=== PATIENT | male | born 2000 | race Caucasian/White ===

== ENCOUNTER → 2022-11-25 | Outpatient (CLI) | payer MEDICAID | LOC: M WUC 11:52 | PROVIDERS: ATTEND Physician Assistant | DX: M25.551 Pain in right hip (principal); M54.50 Low back pain, unspecified ==

== ENCOUNTER → 2025-06-12 | Outpatient (REF) | payer OTHER, MEDICAID ==
[2025-06-12 15:31] LABS: BASO # 0.0 10^3/uL (0.0-0.2); BASO % 0.4 % (0.0-1.0); EOS # 0.0 10^3/uL (0.0-0.5); EOS % 0.4 % (0.0-3.0); LYMPH # 2.4 10^3/uL (1.5-5.0); LYMPH % 31.1 % (24.0-44.0); MONO # 0.5 10^3/uL (0.0-0.8); MONO % 6.6 % (2.0-8.0); NEUTROPHILS # 4.7 10^3/uL (1.5-8.5); NEUTROPHILS % 61.1 % (36.0-66.0); PLATELET COUNT, AUTOMATED 330 10^3/uL (150-450)
[2025-06-12 15:33] LABS: ALT/SGPT 42 U/L (7.0-40); AST/SGOT 22 U/L (<34); CALCIUM LEVEL 10.2 MG/DL (8.5-10.1); CARBON DIOXIDE LEVEL 27 MMOL/L (20-31); CHLORIDE LEVEL 103 MMOL/L (98-107); CHOLESTEROL LEVEL 303 MG/DL (<200); CHOLESTEROL RISK RATIO 6.93 (<5); CREATININE FOR GFR 0.83 MG/DL (0.70-1.30); GLOMERULAR FILTRATION RATE > 90.0 (>60); LDL CHOLESTEROL 227.5 MG/DL (<100); NON-HDL-C 259.3 MG/DL; POTASSIUM SERUM 4.4 MMOL/L (3.5-5.1); SODIUM LEVEL 142 MMOL/L (136-145); TRIGLYCERIDES LEVEL 159 MG/DL (<150)
== END ==
LOC: M LAB REF 14:37
PROVIDERS: ATTEND Student in an Organized Health Care Education/Training Program
DX: Z00.00 Encounter for general adult medical examination without abnormal findings (principal)